=== PATIENT | male | born 1970 | race Hispanic/Latino ===

== ENCOUNTER 2019-06-25 07:47 | Inpatient (IN) | payer MEDICARE ==
[2019-06-25] MEDS ORDERED: SODIUM CHLORIDE 0.9% 1000 ML 1,000 ML IV ONE (08:16)
--- NOTE | 2019-06-25 08:27 | Emergency Department Report ---
ED General Adult HPI - General Chief complaint: Weakness Stated complaint: WEAKNESS Time Seen by Provider: 06/25/19 08:17 Source: patient, EMS Mode of arrival: Wheelchair Limitations: No Limitations, Physical Limitation - History of Present Illness Initial comments: 49 yo comes to ER with co weakness. He admits to crack this AM. Denies cp or SOB. Pt lived in personal senior living that closed. They gave him temp housing in hotel- which he will get kicked of today at 1100. Pt states he has DM and HTN. Also BKA left. Also has hypothyroidism Pt states he is on many meds but can not tell me what they are- they are in hotel room which he states he can not access. Denies CVA/heart attack PCP Dr Palencia Denies cig/etoh NOK is dad who lives in [place] -: Sudden, hour(s) Improves with: none Worsens with: none Associated Symptoms: malaise, weakness. denies: denies other symptoms, confusion, chest pain, cough, diaphoresis, fever/chills, headaches, loss of appetite, nausea/vomiting, rash, seizure, shortness of breath, syncope Treatments Prior to Arrival: none - Related Data Home Medications Medication Instructions Recorded Confirmed Last Taken Unobtainable 06/25/19 06/25/19 Unknown Allergies Allergy/AdvReac Type Severity Reaction Status Date / Time BOWEN Inhibitors Allergy Unknown Verified 06/25/19 08:06 ED Review of Systems ROS: Stated complaint: WEAKNESS Other details as noted in HPI Comment: All other systems reviewed and negative ED Past Medical Hx - Past Medical History Previous Medical History?: Yes Hx Hypertension: Yes Hx CVA: No Hx Heart Attack/AMI: No Hx Congestive Heart Failure: No Hx Diabetes: Yes Hx Deep Vein Thrombosis: No Hx Pulmonary Embolism: No Hx GERD: No Hx Liver Disease: No Hx Renal Disease: No Hx of Cancer: No Hx Sickle Cell Disease: No Hx Arthritis: No Hx Headaches / Migraines: No Hx Seizures: No Hx Kidney Stones: No Hx Psychiatric Treatment: Yes (schizo affective) Hx Asthma: No Hx COPD: No Hx Tuberculosis: No Hx Dementia: No Hx HIV: No Additional medical history: hypothyroid - Surgical History Past Surgical History?: Yes Additional Surgical History: Right AKA- carpel tunnel and finger release - Family History Family history: no significant - Social History Smoking Status: Current Some Day Smoker Substance Use Type: Alcohol, Cocaine - Medications Home Medications: Home Medications Medication Instructions Recorded Confirmed Last Taken Type Unobtainable 06/25/19 06/25/19 Unknown History ED Physical Exam - General Limitations: No Limitations, Physical Limitation General appearance: alert, in no apparent distress - Head Head exam: Present: atraumatic, normocephalic - Eye Eye exam: Present: normal appearance - ENT ENT exam: Present: mucous membranes moist - Neck Neck exam: Present: normal inspection - Respiratory Respiratory exam: Present: normal lung sounds bilaterally. Absent: respiratory distress - Cardiovascular Cardiovascular Exam: Present: regular rate, normal rhythm. Absent: systolic murmur, diastolic murmur, rubs, gallop - GI/Abdominal GI/Abdominal exam: Present: soft, normal bowel sounds - Rectal Rectal exam: Present: deferred - Extremities Exam Extremities exam: Present: other (r bka) - Back Exam Back exam: Present: normal inspection - Neurological Exam Neurological exam: Present: alert, oriented X3 - Psychiatric Psychiatric exam: Present: normal affect, normal mood - Skin Skin exam: Present: warm, dry, intact, normal color. Absent: rash ED Course Vital Signs 06/25/19 08:10 Temperature 98.4 F Pulse Rate 95 H Respiratory 16 Rate Blood Pressure 173/85 O2 Sat by Pulse 96 Oximetry ED Medical Decision Making - Lab Data Result diagrams: 06/25/19 08:29 06/25/19 08:29 - EKG Data EKG shows normal: sinus rhythm Rate: normal - EKG Data Interpretation: no acute changes - Radiology Data Radiology results: report reviewed, image reviewed - Medical Decision Making Labs 06/25/19 06/25/19 06/25/19 08:29 08:29 08:29 WBC 7.1 RBC 4.80 Hgb 13.4 Hct 38.8 MCV 81 L MCH 28 MCHC 35 H RDW 15.6 H Plt Count 130 L Lymph % (Auto) 30.4 [place] % (Auto) 5.5 Eos % (Auto) 3.1 Baso % (Auto) 1.2 Lymph # 2.2 [place] # 0.4 Eos # 0.2 Baso # 0.1 Seg Neutrophils % 59.8 Seg Neutrophils # 4.2 VBG pH 7.297 L Sodium 135 L Potassium 3.7 Chloride 93.7 L Carbon Dioxide 18 L Anion Gap 27 BUN 21 H Creatinine 1.3 Estimated GFR 58 BUN/Creatinine Ratio 16 Glucose 391 H Calcium 9.2 Total Bilirubin 0.30 AST 16 ALT 17 Alkaline Phosphatase 200 H Troponin T 0.038 H Total Protein 6.3 Albumin 2.9 L Albumin/Globulin Ratio 0.9 Triglycerides 392 H Cholesterol 191 LDL Cholesterol Direct 123 HDL Cholesterol 29 L Cholesterol/HDL Ratio 6.58 Urine Color Urine Turbidity Urine pH Ur Specific [place] Urine Protein Urine Glucose (UA) Urine Ketones Urine Blood Urine Nitrite Urine Bilirubin Urine Urobilinogen Ur Leukocyte Esterase Urine WBC (Auto) Urine RBC (Auto) Urine Bacteria (Auto) Urine Mucus Urine Opiates Screen Urine Methadone Screen Ur Barbiturates Screen Ur Phencyclidine Scrn Ur Amphetamines Screen U Benzodiazepines Scrn Urine Cocaine Screen U Marijuana (THC) Screen Drugs of Abuse Note 06/25/19 06/25/19 Unknown Unknown WBC RBC Hgb Hct MCV MCH MCHC RDW Plt Count Lymph % (Auto) [place] % (Auto) Eos % (Auto) Baso % (Auto) Lymph # [place] # Eos # Baso # Seg Neutrophils % Seg Neutrophils # VBG pH Sodium Potassium Chloride Carbon Dioxide Anion Gap BUN Creatinine Estimated GFR BUN/Creatinine Ratio Glucose Calcium Total Bilirubin AST ALT Alkaline Phosphatase Troponin T Total Protein Albumin Albumin/Globulin Ratio Triglycerides Cholesterol LDL Cholesterol Direct HDL Cholesterol Cholesterol/HDL Ratio Urine Color Yellow Urine Turbidity Clear Urine pH 5.0 Ur Specific [place] 1.021 Urine Protein >500 Urine Glucose (UA) >=500 Urine Ketones 80 Urine Blood Mod Urine Nitrite Neg Urine Bilirubin Neg Urine Urobilinogen < 2.0 Ur Leukocyte Esterase Neg Urine WBC (Auto) 2.0 Urine RBC (Auto) 2.0 Urine Bacteria (Auto) 1+ Urine Mucus Few Urine Opiates Screen Presumptive negative Urine Methadone Screen Presumptive negative Ur Barbiturates Screen Presumptive negative Ur Phencyclidine Scrn Presumptive negative Ur Amphetamines Screen Presumptive negative U Benzodiazepines Scrn Presumptive negative Urine Cocaine Screen Presumptive positive U Marijuana (THC) Screen Presumptive negative Drugs of Abuse Note Disclamer Vital Signs 06/25/19 08:10 Temperature 98.4 F Pulse Rate 95 H Respiratory 16 Rate Blood Pressure 173/85 O2 Sat by Pulse [address] Fam labs noted UA noted 12 lead noted NS/insulin NPO BG Q1h Discussed with cards- will admit to [facility] and they will stress in AM [facility] notified of pt presentation- admit to main campus medical center Pt updated on plan of care and admission. - Differential Diagnosis ro dka/infection/acs Critical care attestation.: If time is entered above; I have spent that time in minutes in the direct care of this critically ill patient, excluding procedure time. ED Disposition Clinical Impression: Weakness, Elevated troponin Disposition: DC09 OP ADMIT IP TO THIS HOSP Is pt being admited?: Yes Does the pt Need Aspirin: No Condition: Stable Time of Disposition: 10:42
[2019-06-25 08:55] LABS: Basophils # (Auto) 0.1 K/mm3 (0.0-0.1); Basophils % (Auto) 1.2 % (0.0-1.8); Eosinophils # (Auto) 0.2 K/mm3 (0.0-0.4); Eosinophils % (Auto) 3.1 % (0.0-4.3); Hematocrit 38.8 % (35.5-45.6); Hemoglobin 13.4 gm/dl (11.8-15.2); Lymphocytes # (Auto) 2.2 K/mm3 (1.2-5.4); Lymphocytes % (Auto) 30.4 % (13.4-35.0); Mean Corpuscular HGB Conc 35 % (32-34); Mean Corpuscular Volume 81 fl (84-94); Monocytes # (Auto) 0.4 K/mm3 (0.0-0.8); Monocytes % (Auto) 5.5 % (0.0-7.3); Platelet Count 130 K/mm3 (140-440); Red Cell Distribution Width 15.6 % (13.2-15.2)
[2019-06-25 09:21] LABS: Albumin 2.9 g/dL (3.9-5); Calcium 9.2 mg/dL (8.4-10.2)
[2019-06-25 09:36] LABS: Bacteria,Urine 1+ /HPF (Negative); Bilirubin,Urine NEG (Negative); Blood,Urine MOD (Negative); Color,Urine Yellow (Yellow); Mucus,Urine FEW /HPF; Urobilinogen,Urine < 2.0 mg/dL (<2.0)
[2019-06-25 09:39] LABS: Protein,Urine >500 mg/dL (Negative)
[2019-06-25 09:44] LABS: Amphetamine Screen,Urine PRESUMPTIVE NEGATIVE; Benzodiazepines Screen,Urine PRESUMPTIVE NEGATIVE; Cannabinoid Screen,Urine PRESUMPTIVE NEGATIVE; Methadone Screen,Urine PRESUMPTIVE NEGATIVE; Opiate Screen,Urine PRESUMPTIVE NEGATIVE
[2019-06-25 09:48] LABS: Chol/HDL Ratio 6.58 %
[2019-06-25] MEDS ORDERED: INSULIN REGULAR, HUMAN 100 UNITS/1 ML IV ONE (09:49)
[2019-06-25] MEDS ORDERED: ASPIRIN 325 MG TAB PO ONE (09:49)
[2019-06-25 10:02] LABS: Cocaine Screen,Urine PRESUMPTIVE POSITIVE
--- NOTE | 2019-06-25 10:57 | Consultation ---
History of Present Illness Consult date: 06/25/19 Requesting physician: MALDONADO AVILA Consult reason: chest pain, elevated troponin History of present illness: The pt is a 49 YO male with a past medical history of HTN, DM, crack cocaine abuse, RLE gangrene s/p right BKA several years ago. Pt is previously unknown to our practice. He does not regularly see doctors. He presented with c/o generalized weakness and chest pain since this morning. He was recently "kicked out" of his personal pen[facility] because the home shut down. He was placed in a hotel room. For the past 1 week, he has been smoking crack cocaine in the hotel several times per day. This morning, he developed chest pain and generalized weakness. He describes his chest pain as a midsternal pressure which lasted for approx 2 hours. The pain spontaneously resolved. He denies any SOB, palpi tations, n/v, diaphoresis, dizziness or syncope. He denies any known prior cardiac issues. Past History Past Medical History: diabetes, hypertension Past Surgical History: Other (right BKA) Social history: other (crack cocaine use) Medications and Allergies Allergies Allergy/AdvReac Type Severity Reaction Status Date / Time BOWEN Inhibitors Allergy Unknown Verified 06/25/19 08:06 Home Medications Medication Instructions Recorded Confirmed Last Taken Type Unobtainable 06/25/19 06/25/19 Unknown History Review of Systems Constitutional: weakness (generalized), no weight loss, no weight gain, no fever, no chills, no sweats Ears, nose, mouth and throat: no ear pain, no nose pain, no sinus pressure, no sinus pain Cardiovascular: chest pain, no orthopnea, no palpitations, no rapid/irregular heart beat, no edema, no syncope, no lightheadedness, no shortness of breath, no dyspnea on exertion Respiratory: no cough, no shortness of breath, no dyspnea on exertion, no congestion, no wheezing, no pain on inspiration Gastrointestinal: no abdominal pain, no nausea, no vomiting, no diarrhea, no constipation, no change in bowel habits Genitourinary Male: no dysuria, no hematuria, no flank pain, no discharge, no urinary frequency, no urinary hesitancy Musculoskeletal: no neck stiffness, no neck pain, no shooting arm pain, no arm numbness/tingling, no low back pain, no shooting leg pain Integumentary: no rash, no pruritis, no redness, no sores, no wounds Neurological: no head injury, no paralysis, no weakness, no parathesias, no numbness, no tingling, no seizures Psychiatric: no anxiety Endocrine: no cold intolerance, no heat intolerance Hematologic/Lymphatic: no easy bruising, no easy bleeding Allergic/Immunologic: no urticaria, no wheezing Physical Examination Vital Signs Temp Pulse Resp BP Pulse Ox 98.4 F 95 H 16 173/85 96 06/25/19 08:10 06/25/19 08:10 06/25/19 08:10 06/25/19 08:10 06/25/19 08:10 General appearance: no acute distress HEENT: Positive: PERRL, Normocephaly, Mucus Membranes Moist Neck: Positive: neck supple, trachea midline Cardiac: Positive: Reg Rate and Rhythm, S1/S2 Lungs: Positive: Decreased Breath Sounds Neuro: Positive: Grossly Intact Abdomen: Negative: Tender Skin: Negative: Rash, Wound Musculoskeletal: No Pain, other (right BKA ) Extremities: Present: Other (right BKA) Results 06/25/19 08:29 06/25/19 08:29 Cardiac Enzymes 06/25/19 Range/Units 08:29 AST 16 (5-40) units/L Lipids 06/25/19 Range/Units 08:29 Triglycerides 392 H (2-149) mg/dL Cholesterol 191 (50-199) mg/dL HDL Cholesterol 29 L (40-59) mg/dL Cholesterol/HDL Ratio 6.58 % CBC 06/25/19 Range/Units 08:29 WBC 7.1 (4.5-11.0) K/mm3 RBC 4.80 (3.65-5.03) M/mm3 Hgb 13.4 (11.8-15.2) gm/dl Hct 38.8 (35.5-45.6) % Plt Count 130 L (140-440) K/mm3 Lymph # 2.2 (1.2-5.4) K/mm3 [place] # 0.4 (0.0-0.8) K/mm3 Eos # 0.2 (0.0-0.4) K/mm3 Baso # 0.1 (0.0-0.1) K/mm3 Comprehensive Metabolic Panel 06/25/19 Range/Units 08:29 Sodium 135 L (137-145) mmol/L Potassium 3.7 (3.6-5.0) mmol/L Chloride 93.7 L (98-107) mmol/L Carbon Dioxide 18 L (22-30) mmol/L BUN 21 H (9-20) mg/dL Creatinine 1.3 (0.8-1.5) mg/dL Glucose 391 H (75-100) mg/dL Calcium 9.2 (8.4-10.2) mg/dL AST 16 (5-40) units/L ALT 17 (7-56) units/L Alkaline Phosphatase 200 H (35-129) units/L Total Protein 6.3 (6.3-8.2) g/dL Albumin 2.9 L (3.9-5) g/dL - Imaging and Cardiology Echo: pending EKG: report reviewed, image reviewed EKG interpretations - Telemetry EKG Rhythm: Sinus Rhythm - EKG Sinus rhythms and dysrhythmias: sinus rhythm Assessment and Plan Troponin elevation appears nonspecific at this time. Cont to trend and repeat ECG in AM. If Fany trend upwards, then can consider initiation of heparin gtt. Initiate ASA and statin. Optimize anti-hypertensive regimen. Obtain echo. Plan for lexiscan MPI stress test in AM. NPO after MN. The patient has been seen in conjunction with Dr. Palencia who agrees with the assessment and plan of care. - Patient Problems (1) Chest pain Current Visit: Yes Status: Acute (2) Elevated troponin Current Visit: Yes Status: Acute (3) Weakness Current Visit: Yes Status: Acute (4) Uncontrolled hypertension Current Visit: Yes Status: Chronic (5) Diabetes Current Visit: Yes Status: Chronic (6) Crack cocaine use Current Visit: Yes Status: Chronic (7) Hx of right BKA Current Visit: Yes Status: Chronic
[2019-06-25] MEDS ORDERED: MORPHINE 2 MG/1 ML INJ IV PRN (11:02)
[2019-06-25] MEDS ORDERED: NALOXONE 0.4 MG/1 ML INJ IV PRN (11:02)
[2019-06-25] MEDS ORDERED: DEXTROSE 50% IN WATER (25GM) 50 ML SYRINGE IV PRN (11:02)
[2019-06-25] MEDS ORDERED: ONDANSETRON 4 MG/2 ML INJ IV PRN (11:02)
[2019-06-25] MEDS ORDERED: ACETAMINOPHEN 325 MG TAB PO PRN (11:02)
--- NOTE | 2019-06-25 11:08 | History and Physical Report ---
History of Present Illness Date of examination: 06/25/19 Date of admission: 06/25/19 10:31 Chief complaint: generalized weakness History of present illness: Patient is a 49 year old male with past medical hx of DM, HTN, Right lower ext gangrene s/p BKA as a complication of DM, crack cocain abuse, Who presents to the ED with complaints of generalized weakness AND Chest pain. Per patient he was a resident of a personal detention that subsequently shut down and he was placed in a hotel room. The patient reports that unfortunately due to the pervasiveness of cocain in the area and his feeling of depression although not suicidal, he started to use Cocain. The chest pain is central according to the patient with no radiation. He rates it a 5/10 in intensity with generalized weakness. He also denies any shortness of breath, palpitation, nausea or vomiting. He reports some redness and warmth of the left lower leg but no fever. At the time of my exam, patients chest pain was resolved. Past History Past Medical History: diabetes, hypertension Past Surgical History: Other (right BKA) Social history: other (crack cocaine use Past History Past Medical History: diabetes, hypertension Past Surgical History: Other (right BKA) Social history: other (crack cocaine use) Medications and Allergies Allergies Allergy/AdvReac Type Severity Reaction Status Date / Time BOWEN Inhibitors Allergy Unknown Verified 06/25/19 08:06 Home Medications Medication Instructions Recorded Confirmed Last Taken Type Unobtainable 06/25/19 06/25/19 Unknown History Active Meds: Active Medications Acetaminophen (Tylenol) 650 mg PO Q4H PRN PRN Reason: Pain MILD(1-3)/Fever >100.5/KNOTT Aspirin (Aspirin) 325 mg PO QDAY ADITHYA Atorvastatin Calcium (Lipitor) 40 mg PO QHS [facility] Dextrose (D50w (25gm) Syringe) 50 ml IV Q30MIN PRN; Protocol PRN Reason: Hypoglycemia Heparin Sodium/Sodium Chloride (Heparin/ 0.45% Nacl-25,000 Unit/500 Ml) 25,000 unit in 500 mls @ 20 mls/hr IV TITRATE ADITHYA; Protocol Insulin Human Lispro (Humalog) 0 unit SUB-Q Q6HR ADITHYA; Protocol Morphine Sulfate (Morphine) 2 mg IV Q4H PRN PRN Reason: Pain, Moderate (4-6) Naloxone HCl (Naloxone) 0.1 mg IV Q2MIN PRN PRN Reason: Res Rate </= 8 or 02 SAT < 92% Ondansetron HCl (Zofran) 4 mg IV Q8H PRN PRN Reason: Nausea And Vomiting Sodium Chloride (Sodium Chloride Flush Syringe 10 Ml) 10 ml IV BID ADITHYA Sodium Chloride (Sodium Chloride Flush Syringe 10 Ml) 10 ml IV PRN PRN PRN Reason: LINE FLUSH Review of Systems All systems: negative Constitutional: fatigue, weakness, malaise, lethargy, no weight loss, no weight gain, no fever, no chills Cardiovascular: edema, no chest pain, no orthopnea, no palpitations, no rapid/irregular heart beat, no lightheadedness, no shortness of breath, no dyspnea on exertion Respiratory: shortness of breath, no cough, no cough with sputum, no excessive sputum, no dyspnea on exertion, no pain Gastrointestinal: no abdominal pain, no nausea, no vomiting, no hematochezia, no loss of appetite Musculoskeletal: no neck pain, no low back pain, no muscle weakness Integumentary: no rash, no wounds, no lesions Neurological: weakness, gait dysfunction, no parathesias, no numbness, no seizures Psychiatric: no anxiety, no memory loss, no sleep disturbances Allergic/Immunologic: no urticaria Exam - Constitutional Vitals: Temp Pulse Resp BP Pulse Ox 98.4 F 95 H 16 173/85 96 06/25/19 08:10 06/25/19 08:10 06/25/19 08:10 06/25/19 08:10 06/25/19 08:10 General appearance: Present: mild distress, well-nourished - EENT Eyes: Present: PERRL, EOM intact ENT: clear oral mucosa - Neck Neck: Present: supple, normal ROM - Respiratory Respiratory effort: normal Respiratory: bilateral: diminished - Cardiovascular Rhythm: regular Heart Sounds: Present: S1 & S2. Absent: systolic murmur, diastolic murmur - Extremities Extremities: no ischemia, pulses intact, pulses symmetrical, normal temperature Extremity abnormal: edema Peripheral Pulses: within normal limits - Abdominal General gastrointestinal: Present: soft, non-tender, non-distended, normal bowel sounds - Integumentary Integumentary: Present: warm, erythema (left lower ext) - Musculoskeletal Musculoskeletal: generalized weakness - Psychiatric Psychiatric: appropriate mood/affect, intact judgment & insight - Neurologic Neurologic: CNII-XII intact, moves all extremities - Allied Health Allied health notes reviewed: nursing Results - Labs CBC & Chem 7: 06/25/19 18:55 06/25/19 08:29 Labs: Laboratory Last Values WBC 7.1 K/mm3 (4.5-11.0) 06/25/19 08:29 RBC 4.80 M/mm3 (3.65-5.03) 06/25/19 08:29 Hgb 13.4 gm/dl (11.8-15.2) 06/25/19 08:29 Hct 38.8 % (35.5-45.6) 06/25/19 08: MCV 81 fl (84-94) L 06/25/19 08:29 MCH 28 pg (28-32) 06/25/19 08:29 MCHC 35 % (32-34) H 06/25/19 08: RDW 15.6 % (13.2-15.2) H 06/25/19 08:29 Plt Count 130 K/mm3 (140-440) L 06/25/19 08:29 Lymph % (Auto) 30.4 % (13.4-35.0) 06/25/19 08:29 [place] % (Auto) 5.5 % (0.0-7.3) 06/25/19 08:29 Eos % (Auto) 3.1 % (0.0-4.3) 06/25/19 08:29 Baso % (Auto) 1.2 % (0.0-1.8) 06/25/19 08:29 Lymph # 2.2 K/mm3 (1.2-5.4) 06/25/19 08:29 [place] # 0.4 K/mm3 (0.0-0.8) 06/25/19 08:29 Eos # 0.2 K/mm3 (0.0-0.4) 06/25/19 08: Baso # 0.1 K/mm3 (0.0-0.1) 06/25/19 08:29 Seg Neutrophils % 59.8 % (40.0-70.0) 06/25/19 08: Seg Neutrophils # 4.2 K/mm3 (1.8-7.7) 06/25/19 08:29 VBG pH 7.297 (7.320-7.420) L 06/25/19 08:29 Sodium 135 mmol/L (137-145) L 06/25/19 08:29 Potassium 3.7 mmol/L (3.6-5.0) 06/25/19 08:29 Chloride 93.7 mmol/L (98-107) L 06/25/19 08:29 Carbon Dioxide 18 mmol/L (22-30) L 06/25/19 08:29 Anion Gap 27 mmol/L 06/25/19 08:29 BUN 21 mg/dL (9-20) H 06/25/19 08:29 Creatinine 1.3 mg/dL (0.8-1.5) 06/25/19 08:29 Estimated GFR 58 ml/min 06/25/19 08:29 BUN/Creatinine Ratio 16 % 06/25/19 08:29 Glucose 391 mg/dL (75-100) H 06/25/19 08:29 Calcium 9.2 mg/dL (8.4-10.2) 06/25/19 08:29 Total Bilirubin 0.30 mg/dL (0.1-1.2) 06/25/19 08:29 AST 16 units/L (5-40) 06/25/19 08:29 ALT 17 units/L (7-56) 06/25/19 08:29 Alkaline Phosphatase 200 units/L (35-129) H 06/25/19 08:29 Troponin T 0.038 ng/mL (0.00-0.029) H 06/25/19 08:29 Total Protein 6.3 g/dL (6.3-8.2) 06/25/19 08:29 Albumin 2.9 g/dL (3.9-5) L 06/25/19 08:29 Albumin/Globulin Ratio 0.9 % 06/25/19 08:29 Triglycerides 392 mg/dL (2-149) H 06/25/19 08:29 Cholesterol 191 mg/dL (50-199) 06/25/19 08:29 LDL Cholesterol Direct 123 mg/dL (50-130) 06/25/19 08:29 HDL Cholesterol 29 mg/dL (40-59) L 06/25/19 08:29 Cholesterol/HDL Ratio 6.58 % 06/25/19 08:29 Urine Color Yellow (Yellow) 06/25/19 Unknown Urine Turbidity Clear (Clear) 06/25/19 Unknown Urine pH 5.0 (5.0-7.0) 06/25/19 Unknown Ur Specific [place] 1.021 (1.003-1.030) 06/25/19 Unknown Urine Protein >500 mg/dL (Negative) 06/25/19 Unknown Urine Glucose (UA) >=500 mg/dL (Negative) 06/25/19 Unknown Urine Ketones 80 mg/dL (Negative) 06/25/19 Unknown Urine Blood Mod (Negative) 06/25/19 Unknown Urine Nitrite Neg (Negative) 06/25/19 Unknown Urine Bilirubin Neg (Negative) 06/25/19 Unknown Urine Urobilinogen < 2.0 mg/dL (<2.0) 06/25/19 Unknown Ur Leukocyte Esterase Neg (Negative) 06/25/19 Unknown Urine WBC (Auto) 2.0 /HPF (0.0-6.0) 06/25/19 Unknown Urine RBC (Auto) 2.0 /HPF (0.0-6.0) 06/25/19 Unknown Urine Bacteria (Auto) 1+ /HPF (Negative) 06/25/19 Unknown Urine Mucus Few /HPF 06/25/19 Unknown Urine Opiates Screen Presumptive negative 06/25/19 Unknown Urine Methadone Screen Presumptive negative 06/25/19 Unknown Ur Barbiturates Screen Presumptive negative 06/25/19 Unknown Ur Phencyclidine Scrn Presumptive negative 06/25/19 Unknown Ur Amphetamines Screen Presumptive negative 06/25/19 Unknown U Benzodiazepines Scrn Presumptive negative 06/25/19 Unknown Urine Cocaine Screen Presumptive positive 06/25/19 Unknown U Marijuana (THC) Screen Presumptive negative 06/25/19 Unknown Drugs of Abuse Note Disclamer 06/25/19 Unknown Assessment and Plan Assessment and plan: Patient is a 49 year old male with past medical hx of DM, HTN, Right lower ext gangrene s/p BKA as a complication of DM, crack cocain abuse, Who presents to the ED with complaints of generalized weakness AND Chest pain. Per patient he was a resident of a personal detention that subsequently shut down and he was placed in a hotel room. The patient reports that unfortunately due to the pervasiveness of cocain in the area and his feeling of depression although not suicidal, he started to use Cocain. The chest pain is central according to the patient with no radiation. He rates it a 5/10 in intensity with generalized weakness. He also denies any shortness of breath, palpitation, nausea or vomiting. He reports some redness and warmth of the left lower leg but no fever. At the time of my exam, patients chest pain was resolved. Atypical chest pain Depression Metabolic Acidosis Hyponatremia Left lower ext cellulitis Thrombocytopenia Trace Troponin Uncontrolled DM Substance abuse No Sepsis SIRS HTN DM Plan Admit to Telemetry Cardiology already consulted plan for stress over the weekend. Per team no need for heparin gtt at this time BP control EMPERIC ABX CM CONSULT FOR PLACEMENT ON DISCHARGE ACCU CHECK ACHS INSULIN THERAPY Give a dose of bicarb ECho cardiogram Monitor sodium level extensive counselling on crack cocain use and her verbalized understanding dvt/gi prophy fall precautions Advance Directives: Yes Plan of care discussed with patient/family: Yes
[2019-06-25] MEDS ORDERED: SODIUM CHLORIDE 0.9% 1000 ML 1,000 ML ONE (11:22)
[2019-06-25] MEDS ORDERED: INSULIN REGULAR, HUMAN 100 UNITS/1 ML ONE (11:23)
[2019-06-25] MEDS ORDERED: ASPIRIN 325 MG TAB ONE (11:24)
[2019-06-25] MEDS ORDERED: HEPARIN/ 0.45% NACL DRIP 25,000 UNIT/500 ML BAG IV SCH (12:00)
[2019-06-25] MEDS ORDERED: INSULIN LISPRO 100 UNIT/ML SUB-Q SCH (12:00)
--- NOTE | 2019-06-25 12:05 | XRay Report ---
CHEST 1 VIEW INDICATION: weakness. COMPARISON: None FINDINGS: Support devices: None. Heart: Within normal limits. Lungs/Pleura: No acute air space or interstitial disease. Additional findings: None. IMPRESSION: Normal AP chest. Signer Name: Enzo Reynolds Jr, MD Signed: 06/25/2019 12:00 PM Workstation Name: [id number]
[2019-06-25] MEDS: CEFEPIME/NS 1 GM/100 ML 1 GM/100 ML BAG IV SCH ×2 (17:48→22:58)
[2019-06-25] MEDS: INSULIN LISPRO 100 UNIT/ML SUB-Q SCH ×2 (17:49→22:58)
[2019-06-25 19:21] LABS: Hematocrit 36.8 % (35.5-45.6); Hemoglobin 12.3 gm/dl (11.8-15.2)
[2019-06-25 19:30] LABS: INR 1.07 (0.87-1.13)
[2019-06-25 19:31] LABS: Partial Thromboplastin Time 35.3 Sec. (24.2-36.6)
[2019-06-25] MEDS: INSULIN GLARGINE 100 UNITS/ML SUB-Q SCH (22:57)
[2019-06-26] MEDS: CEFEPIME/NS 1 GM/100 ML 1 GM/100 ML BAG IV SCH ×2 (06:23→14:18)
[2019-06-26] MEDS ORDERED: REGADENOSON 0.4 MG/5 ML INJ IV ONE (07:57)
[2019-06-26] MEDS: INSULIN LISPRO 100 UNIT/ML SUB-Q SCH ×4 (08:00→21:51)
--- NOTE | 2019-06-26 08:56 | Progress Note ---
Assessment and Plan Treatment medically for patient's abnormal trop secondary to crack cocaine use patient was counseled. Drug abuse patient has normal myocardial perfusion scan on stress test and normal function echocardiogram patient will be on aspirin and statin and BP control discharge from cardiovascular - Patient Problems (1) NSTEMI (non-ST elevated myocardial infarction) Current Visit: Yes Status: Acute (2) Weakness Current Visit: Yes Status: Acute (3) Crack cocaine use Current Visit: Yes Status: Chronic (4) Diabetes Current Visit: Yes Status: Chronic (5) Hx of right BKA Current Visit: Yes Status: Chronic (6) Uncontrolled hypertension Current Visit: Yes Status: Chronic Subjective Date of service: 06/26/19 Principal diagnosis: weakness Interval history: pt denies any chest pain or sob , but weakness Objective Vital Signs Temp Pulse Resp BP Pulse Ox 06/26/19 03:55 98.6 F 79 16 149/73 100 06/26/19 03:47 92 H 06/26/19 00:45 98.2 F 96 H 18 154/56 91 06/25/19 22:57 90 155/75 06/25/19 21:55 97 06/25/19 21:05 98.8 F 97 H 20 155/75 97 06/25/19 19:47 96 H 06/25/19 15:52 98.3 F 95 H 18 119/48 95 06/25/19 13:02 97.7 F 79 18 158/79 98 06/25/19 11:32 93 H 148/76 - Physical Examination HEENT: Positive: PERRL, Normocephaly, Mucus Membranes Moist Neck: Positive: neck supple, trachea midline Cardiac: Positive: Reg Rate and Rhythm Lungs: Positive: clear to auscultation Neuro: Positive: Grossly Intact Abdomen: Negative: Tender Skin: Negative: Rash, Wound Musculoskeletal: No Pain, other (right BKA ) Extremities: Present: Other (right BKA) - Labs and Meds Cardiac Enzymes 06/25/19 Range/Units 08:29 AST 16 (5-40) units/L Coagulation 06/25/19 Range/Units 18:55 PT 13.8 (12.2-14.9) Sec. INR 1.07 (0.87-1.13) APTT 35.3 (24.2-36.6) Sec. Lipids 06/25/19 Range/Units 08:29 Triglycerides 392 H (2-149) mg/dL Cholesterol 191 (50-199) mg/dL HDL Cholesterol 29 L (40-59) mg/dL Cholesterol/HDL Ratio 6.58 % CBC 06/25/19 06/25/19 Range/Units 08:29 18:55 WBC 7.1 (4.5-11.0) K/mm3 RBC 4.80 (3.65-5.03) M/mm3 Hgb 13.4 12.3 (11.8-15.2) gm/dl Hct 38.8 36.8 (35.5-45.6) % Plt Count 130 L 111 L (140-440) K/mm3 Lymph # 2.2 (1.2-5.4) K/mm3 [place] # 0.4 (0.0-0.8) K/mm3 Eos # 0.2 (0.0-0.4) K/mm3 Baso # 0.1 (0.0-0.1) K/mm3 Comprehensive Metabolic Panel 06/25/19 Range/Units 08:29 Sodium 135 L (137-145) mmol/L Potassium 3.7 (3.6-5.0) mmol/L Chloride 93.7 L (98-107) mmol/L Carbon Dioxide 18 L (22-30) mmol/L BUN 21 H (9-20) mg/dL Creatinine 1.3 (0.8-1.5) mg/dL Glucose 391 H (75-100) mg/dL Calcium 9.2 (8.4-10.2) mg/dL AST 16 (5-40) units/L ALT 17 (7-56) units/L Alkaline Phosphatase 200 H (35-129) units/L Total Protein 6.3 (6.3-8.2) g/dL Albumin 2.9 L (3.9-5) g/dL - Imaging and Cardiology EKG: report reviewed, image reviewed Pharmacologic stress test: report reviewed (normal myocardial perfusion scan normal lv function) Echo: report reviewed (normal LV function and no significant regurgitations) - Telemetry EKG Rhythm: Sinus Rhythm - EKG Sinus rhythms and dysrhythmias: sinus rhythm
--- NOTE | 2019-06-26 09:47 | Treadmill Report ---
NUCLEAR PERFUSION STUDY REASON FOR STUDY: Abnormal troponin. IMAGING PROTOCOL: IMAGING PROTOCOL: The patient received 10 mCi of Technetium 99m Tetrofosmin for resting image and 28 mCi of Technetium 99m Tetrofosmin for stress imaging. The imaging for the whole procedure was completed 30-90 minutes following the initial injection of Technetium 99m Tetrofosmin. The SPECT imaging in the 180 degree arc was performed in the right anterior oblique projection. Computerized reconstruction of the images was performed for analysis. IMAGING RESULTS: Normal distribution of radionuclide in the anterior, inferior, septal, and apical regions. Gated SPECT, EF 64% with no wall motion abnormality. The patient infused Lexiscan with no EKG changes. SUMMARY: 1. Negative Lexiscan EKG. 2. Normal rest and stress myocardial perfusion scan. No significant stress ischemia. No wall motion abnormality. Gated SPECT, EF 64%. JOB# [id number] ADINA/LYNETTE
[2019-06-26] MEDS: ASPIRIN 325 MG TAB PO SCH (10:35)
[2019-06-26 11:03] LABS: Basophils # (Auto) 0.1 K/mm3 (0.0-0.1); Basophils % (Auto) 0.9 % (0.0-1.8); Eosinophils # (Auto) 0.2 K/mm3 (0.0-0.4); Eosinophils % (Auto) 2.6 % (0.0-4.3); Hematocrit 37.6 % (35.5-45.6); Hemoglobin 12.4 gm/dl (11.8-15.2); Lymphocytes # (Auto) 1.3 K/mm3 (1.2-5.4); Lymphocytes % (Auto) 21.4 % (13.4-35.0); Mean Corpuscular HGB Conc 33 % (32-34); Mean Corpuscular Volume 84 fl (84-94); Monocytes # (Auto) 0.3 K/mm3 (0.0-0.8); Monocytes % (Auto) 5.5 % (0.0-7.3); Platelet Count 114 K/mm3 (140-440); Red Cell Distribution Width 15.6 % (13.2-15.2)
[2019-06-26 11:19] LABS: Calcium 8.5 mg/dL (8.4-10.2)
--- NOTE | 2019-06-26 12:52 | Discharge Summary ---
Providers - Providers Date of Admission: 06/25/19 10:31 Date of discharge: 06/26/19 Attending physician: EMILY STALEY 06/25/19 10:50 Consult to Physician [CONS] Stat Comment: Consulting Provider: MIGDALIA RAMIREZ Physician Instructions: Reason For Exam: elevated troponin 06/25/19 12:29 Consult to Mental Health [CONS] Routine Reason For Exam: medication assistance Place consult to:: mental health Notified:: Alexia KIRKLAND Phone number called:: [phone]. [phone] Was contact made?: Yes If yes, spoke with:: [facility] Time called:: 13:52 06/25/19 12:38 Consult to Case Management [CONS] Routine Services Needed at Discharge: Server Support Technician Notified:: case management Additional Physician Instructions: homeless Primary care physician: FAMILY THERAPIST Hospitalization Condition: Good Pertinent studies: echo cardiogram normal and stress test normal Hospital course: presents atypical chest pain secondary to crack cocaine abuse. Patient had negative stress tests negative echo. Cardiac isoenzymes are elevated secondary to crack cocaine abuse. Hypertension fairly well control was optimize d. Patient stabilized for discharge. Also had evidence of hyponatremia diabetes are stable and hypertension. Disposition: DC-01 TO HOME OR SELFCARE Core Measure Documentation - Palliative Care Palliative Care/ Comfort Measures: Not Applicable - Core Measures Any of the following diagnoses?: none Exam - Constitutional Vitals: Temp Pulse Resp BP Pulse Ox 98.6 F 79 16 129/64 100 06/26/19 03:55 06/26/19 03:55 06/26/19 03:55 06/26/19 08:46 06/26/19 03:55 General appearance: Present: no acute distress, well-nourished - EENT Eyes: Present: PERRL ENT: hearing intact, clear oral mucosa - Neck Neck: Present: supple, normal ROM - Respiratory Respiratory effort: normal Respiratory: bilateral: CTA - Cardiovascular Heart Sounds: Present: S1 & S2. Absent: rub, click - Extremities Extremities: pulses symmetrical, No edema Peripheral Pulses: within normal limits - Abdominal General gastrointestinal: Present: soft, non-tender, non-distended, normal bowel sounds Male genitourinary: Present: normal - Integumentary Integumentary: Present: clear, warm, dry - Musculoskeletal Musculoskeletal: gait normal, strength equal bilaterally - Psychiatric Psychiatric: appropriate mood/affect, intact judgment & insight - Neurologic Neurologic: CNII-XII intact, moves all extremities Plan Activity: no restrictions Weight Bearing Status: Full Weight Bearing Diet: low cholesterol Wound: open to air Follow up with: PRIMARY CARE, [Primary Care Provider] - 7 Days Prescriptions: Aspirin 325 mg PO QDAY #30 tablet labetaloL [Labetalol 200mg TAB] 200 mg PO BID #60 tablet Insulin Glargine [Lantus VIAL] 20 units SUB-Q QHS #1 units AtorvaSTATin [Lipitor] 40 mg PO QHS #30 tablet
[2019-06-26] MEDS: INSULIN GLARGINE 100 UNITS/ML SUB-Q SCH (21:51)
--- NOTE | 2019-06-26 21:57 | Consultation ---
History of Present Illness - Reason for Consult Consult date: 06/26/19 Reason for consult: psychiatric evaluation - Chief Complaint Chief complaint: generalized weakness - History of Present Psychiatric Illness 49 yo seen for psychiatric evaluation on the tele floor. He admits to crack/cocaine use prior to arrival to the hospital. He also reports being out of medications x 2 weeks. He says he spend 10 years living in nursing homes and then went to live in a personal fpc. It went bankrupt and he was temporarily housed in a hotel. He no longer has money for the hotel and has no access to his belongings. He reports being diagnosed with schizoaffective disorder, depressive type and has a history of cocaine use. He was clean for 10 years and relapsed while at the hotel. Medications and Allergies Allergies Allergy/AdvReac Type Severity Reaction Status Date / Time BOWEN Inhibitors Allergy Unknown Verified 06/25/19 08:06 Home Medications Medication Instructions Recorded Confirmed Last Taken Type Acetaminophen [Acetaminophen TAB] 650 mg PO Q4H PRN tablet 06/26/19 Unknown Rx Aspirin 325 mg PO QDAY #30 tablet 06/26/19 Unknown Rx AtorvaSTATin [Lipitor] 40 mg PO QHS #30 tablet 06/26/19 Unknown Rx Insulin Glargine [Lantus VIAL] 20 units SUB-Q QHS #1 units 06/26/19 Unknown Rx labetaloL [Labetalol 200mg TAB] 200 mg PO BID #60 tablet 06/26/19 Unknown Rx Active Meds: Active Medications Acetaminophen (Tylenol) 650 mg PO Q4H PRN PRN Reason: Pain MILD(1-3)/Fever >100.5/KNOTT Aspirin (Aspirin) [address] [facility] Last Admin: 06/26/19 10:35 Dose: 325 mg Documented by: Atorvastatin Calcium (Lipitor) [address] [facility] Last Admin: 06/26/19 21:50 Dose: 40 mg Documented by: Dextrose (D50w (25gm) Syringe) 50 ml IV Q30MIN PRN; Protocol PRN Reason: Hypoglycemia Insulin Glargine (Lantus) 20 units SUB-Q QHS [facility] Last Admin: 06/26/19 21:51 Dose: 20 units Documented by: Insulin Human Lispro (Humalog) 0 unit SUB-Q [facility]; Protocol Last Admin: 06/26/19 21:51 Dose: 8 unit Documented by: Labetalol HCl (Labetalol) [address] [facility] Last Admin: 06/26/19 21:50 Dose: 200 mg Documented by: Morphine Sulfate (Morphine) 2 mg IV Q4H PRN PRN Reason: Pain, Moderate (4-6) Naloxone HCl (Naloxone) 0.1 mg IV Q2MIN PRN PRN Reason: Res Rate </= 8 or 02 SAT < 92% Ondansetron HCl (Zofran) 4 mg IV Q8H PRN PRN Reason: Nausea And Vomiting Sodium Chloride (Sodium Chloride Flush Syringe 10 Ml) [address] [facility] Last Admin: 06/26/19 21:52 Dose: 10 ml Documented by: Sodium Chloride (Sodium Chloride Flush Syringe 10 Ml) 10 ml IV PRN PRN PRN Reason: LINE FLUSH Past psychiatric history - Past Medical History Past Medical History: other (DM and HTN. Also BKA left. Also has hypothyroidism) - Social History Social history: other (homeless) Mental Status Exam - Vital signs Last Vital Signs Temp 97.9 F 06/26/19 19:52 Pulse 70 06/26/19 21:50 Resp 18 06/26/19 19:52 BP 154/73 06/26/19 21:50 Pulse Ox 98 06/26/19 19:52 - Exam Orientation: time, place, person Affect: depressed Mood: congruent with affect Thought content: other (denies suicidal ideation, no HI) Thought Process: Intact Perceptions: auditory (hearing voices telling him he is no good) Speech: normal rate and pattern Concentration: focused Motor activity: normal Level of consciousness: alert Memory: Intact Sleep Symptoms: Difficulty Falling Asleep Appetite: decreased Interaction: cooperative Results Result Diagrams: 06/26/19 10:40 06/26/19 10:40 Abnormal lab results 06/25/19 06/26/19 06/26/19 Range/Units 22:10 10:40 10:40 RDW 15.6 H (13.2-15.2) % Plt Count 114 L (140-440) K/mm3 Sodium 135 L (137-145) mmol/L Carbon Dioxide 19 L (22-30) mmol/L Glucose 656 H* (75-100) mg/dL POC Glucose 465 H (70-105) 06/26/19 06/26/19 06/26/19 Range/Units 11:48 16:38 21:51 RDW (13.2-15.2) % Plt Count (140-440) K/mm3 Sodium (137-145) mmol/L Carbon Dioxide (22-30) mmol/L Glucose (75-100) mg/dL POC Glucose 494 H 393 H 457 H (70-105) All other labs normal. Assessment and Plan Assessment and plan: Impression: schizoaffective disorder, depressive type cocaine use disorder relapsed after 10 years all med names and dosages unknown Recommendations: He says effexor and risperdal are familiar restart effexor xr 75mg qam for depressive symptoms and risperdal 1mg hs for SCAD. risks/benefits discussed dispo: 1013 not indicated. psych for med management. CM to address his housing needs staffed with Dr. Solomon
[2019-06-26] MEDS: risperiDONE 1 MG TAB PO SCH (22:09)
--- NOTE | 2019-06-27 09:37 | Progress Note ---
Assessment and Plan In view of no arrhythmia 48 hours PP control chest pain free negative stress test and normal LV function echocardiogram patient may be discharged from cardiovascular point of view and patient again about avoiding taking drugs cocaine - Patient Problems (1) NSTEMI (non-ST elevated myocardial infarction) Current Visit: Yes Status: Acute (2) Weakness Current Visit: Yes Status: Acute (3) Crack cocaine use Current Visit: Yes Status: Chronic (4) Diabetes Current Visit: Yes Status: Chronic (5) Hx of right BKA Current Visit: Yes Status: Chronic (6) Uncontrolled hypertension Current Visit: Yes Status: Chronic Subjective Date of service: 06/27/19 Principal diagnosis: weakness Interval history: lying in bed no sob or cp Objective Vital Signs Temp Pulse Resp BP Pulse Ox 06/27/19 08:18 97.6 F 81 18 146/71 97 06/27/19 04:37 97.9 F 74 20 155/74 98 06/27/19 03:00 76 06/26/19 23:38 98.2 F 73 20 135/67 97 06/26/19 21:50 70 154/73 06/26/19 19:52 97.9 F 75 18 154/73 98 06/26/19 16:54 80 141/64 97 06/26/19 15:21 98 06/26/19 15:00 85 06/26/19 12:28 98.1 F 85 18 147/50 95 - Physical Examination General: No Apparent Distress HEENT: Positive: PERRL, Normocephaly, Mucus Membranes Moist Neck: Positive: neck supple, trachea midline Cardiac: Positive: Reg Rate and Rhythm Lungs: Positive: clear to auscultation Neuro: Positive: Grossly Intact Abdomen: Negative: Tender Skin: Negative: Rash, Wound Musculoskeletal: No Pain, other (right BKA ) Extremities: Present: Other (right BKA) - Labs and Meds CBC 06/26/19 Range/Units 10:40 WBC 6.0 (4.5-11.0) K/mm3 RBC 4.50 (3.65-5.03) M/mm3 Hgb 12.4 (11.8-15.2) gm/dl Hct 37.6 (35.5-45.6) % Plt Count 114 L (140-440) K/mm3 Lymph # 1.3 (1.2-5.4) K/mm3 [place] # 0.3 (0.0-0.8) K/mm3 Eos # 0.2 (0.0-0.4) K/mm3 Baso # 0.1 (0.0-0.1) K/mm3 Comprehensive Metabolic Panel 06/26/19 Range/Units 10:40 Sodium 135 L (137-145) mmol/L Potassium 3.9 (3.6-5.0) mmol/L Chloride 98.9 (98-107) mmol/L Carbon Dioxide 19 L (22-30) mmol/L BUN 20 (9-20) mg/dL Creatinine 1.3 (0.8-1.5) mg/dL Glucose 656 H* (75-100) mg/dL Calcium 8.5 (8.4-10.2) mg/dL - Imaging and Cardiology EKG: report reviewed, image reviewed Echo: report reviewed (normal LV function and no significant regurgitations) - Telemetry EKG Rhythm: Sinus Rhythm (no arrhythmia for 48 hours) - EKG Sinus rhythms and dysrhythmias: sinus rhythm
[2019-06-27] MEDS: VENLAFAXINE XR 75 MG CAP PO SCH (10:01)
[2019-06-27] MEDS: ASPIRIN 325 MG TAB PO SCH (10:01)
[2019-06-27] MEDS: INSULIN LISPRO 100 UNIT/ML SUB-Q SCH ×4 (10:01→22:40)
[2019-06-27] MEDS: INSULIN GLARGINE 100 UNITS/ML SUB-Q SCH ×2 (10:10→22:40)
--- NOTE | 2019-06-27 13:45 | Progress Note ---
Assessment and Plan - Patient Problems (1) Elevated troponin Current Visit: Yes Status: Acute Plan to address problem: Patient non-STEMI secondary to crack use and dehydration. Nonspecific elevation. No chest pain or shortness of breath. (2) NSTEMI (non-ST elevated myocardial infarction) Current Visit: Yes Status: Acute Plan to address problem: We'll treat underlying blood pressure referring from crack use. Aspirin (3) Crack cocaine use Current Visit: Yes Status: Chronic Plan to address problem: Patient had become essentially homeless depressed use crack cocaine. Discussed about and heart disease and also its association with depression (4) Diabetes Current Visit: Yes Status: Chronic Plan to address problem: Patient diabetes uncontrolled. We'll increase long-acting insulin to 18 units twice a day and also control increase sliding scale insulin coverage. (5) Hx of right BKA Current Visit: Yes Status: Chronic (6) Uncontrolled hypertension Current Visit: Yes Status: Chronic Plan to address problem: Patient blood pressure failure was suboptimal. We'll add calcium channel josefina patient is allergic to yaneli inhibitors. (7) Encephalopathy Current Visit: Yes Status: Acute Plan to address problem: Crack induced psychosis. Has resolved. Patient alert and oriented 3 aware of surroundings. (8) Encephalopathy acute Current Visit: Yes Status: Acute (9) Depression Current Visit: Yes Status: Acute Plan to address problem: Patient on Risperdal for history of psychosis and also on Effexor for depression. History Interval history: Patient states he has nowhere to go. Has no cold. As mentioned previously. Patient states he is out of his medications and had no wart to be transported to. Case management involved in the case and aware. Did discuss his diabetes was uncontrolled. He is not sure what he was taking prior. Hospitalist Physical - Constitutional Vitals: Temp Pulse Resp BP Pulse Ox 97.6 F 81 18 146/71 97 06/27/19 08:18 06/27/19 08:18 06/27/19 08:18 06/27/19 08:18 06/27/19 08:18 General appearance: Present: no acute distress, well-nourished - EENT Eyes: Present: PERRL, EOM intact ENT: hearing intact, clear oral mucosa, poor dentition - Neck Neck: Present: supple, normal ROM - Respiratory Respiratory: bilateral: CTA - Cardiovascular Rhythm: regular Heart Sounds: Present: S1 & S2 - Extremities Extremities: no ischemia, pulses intact, pulses symmetrical, abnormal (right BKA) Extremity abnormal: pulses diminished, other (right BKA.) Peripheral Pulses: within normal limits - Abdominal General gastrointestinal: soft, non-tender, non-distended, normal bowel sounds - Integumentary Integumentary: Present: clear, warm, dry - Psychiatric Psychiatric: appropriate mood/affect, intact judgment & insight, memory intact - Neurologic Neurologic: CNII-XII intact, moves all extremities Results - Labs CBC & Chem 7: 06/26/19 10:40 06/26/19 10:40 Labs: Laboratory Last Values WBC 6.0 K/mm3 (4.5-11.0) 06/26/19 10:40 RBC 4.50 M/mm3 (3.65-5.03) 06/26/19 10:40 Hgb 12.4 gm/dl (11.8-15.2) 06/26/19 10:40 Hct 37.6 % (35.5-45.6) 06/26/19 10:40 MCV 84 fl (84-94) 06/26/19 10:40 MCH 28 pg (28-32) 06/26/19 10:40 MCHC 33 % (32-34) 06/26/19 10:40 RDW 15.6 % (13.2-15.2) H 06/26/19 10:40 Plt Count 114 K/mm3 (140-440) L 06/26/19 10:40 Lymph % (Auto) 21.4 % (13.4-35.0) 06/26/19 10:40 [place] % (Auto) 5.5 % (0.0-7.3) 06/26/19 10:40 Eos % (Auto) 2.6 % (0.0-4.3) 06/26/19 10:40 Baso % (Auto) 0.9 % (0.0-1.8) 06/26/19 10:40 Lymph # 1.3 K/mm3 (1.2-5.4) 06/26/19 10:40 [place] # 0.3 K/mm3 (0.0-0.8) 06/26/19 10:40 Eos # 0.2 K/mm3 (0.0-0.4) 06/26/19 10:40 Baso # 0.1 K/mm3 (0.0-0.1) 06/26/19 10:40 Seg Neutrophils % 69.6 % (40.0-70.0) 06/26/19 10:40 Seg Neutrophils # 4.2 K/mm3 (1.8-7.7) 06/26/19 10:40 PT 13.8 Sec. (12.2-14.9) 06/25/19 18:55 INR 1.07 (0.87-1.13) 06/25/19 18:55 APTT 35.3 Sec. (24.2-36.6) 06/25/19 18:55 VBG pH 7.297 (7.320-7.420) L 06/25/19 08:29 Sodium 135 mmol/L (137-145) L 06/26/19 10:40 Potassium 3.9 mmol/L (3.6-5.0) 06/26/19 10:40 Chloride 98.9 mmol/L (98-107) 06/26/19 10:40 Carbon Dioxide 19 mmol/L (22-30) L 06/26/19 10:40 Anion Gap 21 mmol/L 06/26/19 10:40 BUN 20 mg/dL (9-20) 06/26/19 10:40 Creatinine 1.3 mg/dL (0.8-1.5) 06/26/19 10:40 Estimated GFR 58 ml/min 06/26/19 10:40 BUN/Creatinine Ratio 15 % 06/26/19 10:40 Glucose 656 mg/dL (75-100) H* 06/26/19 10:40 POC Glucose 387 (70-105) H 06/27/19 08:25 Hemoglobin A1c 11.8 % (4-6) H 06/25/19 18:55 Calcium 8.5 mg/dL (8.4-10.2) 06/26/19 10:40 Total Bilirubin 0.30 mg/dL (0.1-1.2) 06/25/19 08:29 AST 16 units/L (5-40) 06/25/19 08:29 ALT 17 units/L (7-56) 06/25/19 08:29 Alkaline Phosphatase 200 units/L (35-129) H 06/25/19 08:29 Troponin T 0.047 ng/mL (0.00-0.029) H D 06/25/19 18:55 Total Protein 6.3 g/dL (6.3-8.2) 06/25/19 08:29 Albumin 2.9 g/dL (3.9-5) L 06/25/19 08:29 Albumin/Globulin Ratio 0.9 % 06/25/19 08:29 Triglycerides 392 mg/dL (2-149) H 06/25/19 08:29 Cholesterol 191 mg/dL (50-199) 06/25/19 08:29 LDL Cholesterol Direct 123 mg/dL (50-130) 06/25/19 08:29 HDL Cholesterol 29 mg/dL (40-59) L 06/25/19 08:29 Cholesterol/HDL Ratio 6.58 % 06/25/19 08:29 Urine Color Yellow (Yellow) 06/25/19 Unknown Urine Turbidity Clear (Clear) 06/25/19 Unknown Urine pH 5.0 (5.0-7.0) 06/25/19 Unknown Ur Specific [place] 1.021 (1.003-1.030) 06/25/19 Unknown Urine Protein >500 mg/dL (Negative) 06/25/19 Unknown Urine Glucose (UA) >=500 mg/dL (Negative) 06/25/19 Unknown Urine Ketones 80 mg/dL (Negative) 06/25/19 Unknown Urine Blood Mod (Negative) 06/25/19 Unknown Urine Nitrite Neg (Negative) 06/25/19 Unknown Urine Bilirubin Neg (Negative) 06/25/19 Unknown Urine Urobilinogen < 2.0 mg/dL (<2.0) 06/25/19 Unknown Ur Leukocyte Esterase Neg (Negative) 06/25/19 Unknown Urine WBC (Auto) 2.0 /HPF (0.0-6.0) 06/25/19 Unknown Urine RBC (Auto) 2.0 /HPF (0.0-6.0) 06/25/19 Unknown Urine Bacteria (Auto) 1+ /HPF (Negative) 06/25/19 Unknown Urine Mucus Few /HPF 06/25/19 Unknown Urine Opiates Screen Presumptive negative 06/25/19 Unknown Urine Methadone Screen Presumptive negative 06/25/19 Unknown Ur Barbiturates Screen Presumptive negative 06/25/19 Unknown Ur Phencyclidine Scrn Presumptive negative 06/25/19 Unknown Ur Amphetamines Screen Presumptive negative 06/25/19 Unknown U Benzodiazepines Scrn Presumptive negative 06/25/19 Unknown Urine Cocaine Screen Presumptive positive 06/25/19 Unknown U Marijuana (THC) Screen Presumptive negative 06/25/19 Unknown Drugs of Abuse Note Disclamer 06/25/19 Unknown Active Medications - Current Medications Current Medications: Generic Name Dose Route Start Last Admin Trade Name Freq PRN Reason Stop Dose Admin Acetaminophen 650 mg 06/25/19 11:02 Tylenol PO Q4H PRN Pain MILD(1-3)/Fever >100.5/KNOTT Aspirin 325 mg 06/26/19 10:00 06/27/19 10:01 Aspirin PO 325 mg QDAY ADTIHYA Administration Atorvastatin Calcium 40 mg 06/25/19 22:00 06/26/19 21:50 Lipitor PO 40 mg QHS ADITHYA Administration Dextrose 50 ml 06/25/19 11:02 D50w (25gm) Syringe IV Q30MIN PRN Hypoglycemia Protocol Insulin Glargine 18 units 06/27/19 10:00 06/27/19 10:10 Lantus SUB-Q 18 units BID ADITHYA Administration Insulin Human Lispro 0 unit 06/25/19 16:30 06/27/19 12:22 Humalog SUB-Q 8 unit ACHS ADITHYA Administration Protocol Labetalol HCl 200 mg 06/25/19 22:00 06/27/19 10:01 Labetalol PO 200 mg BID ADITHYA Administration Morphine Sulfate 2 mg 06/25/19 11:02 Morphine IV Q4H PRN Pain, Moderate (4-6) Naloxone HCl 0.1 mg 06/25/19 11:02 Naloxone IV Q2MIN PRN Res Rate </= 8 or 02 SAT < 92% Ondansetron HCl 4 mg 06/25/19 11:02 Zofran IV Q8H PRN Nausea And Vomiting Risperidone 1 mg 06/26/19 22:00 06/26/19 22:09 Risperdal PO 1 mg HS ADITHYA Administration Sodium Chloride 10 ml 06/25/19 22:00 06/27/19 10:06 Sodium Chloride Flush Syringe 10 Ml IV 10 ml BID ADITHYA Administration Sodium Chloride 10 ml 06/25/19 11:02 Sodium Chloride Flush Syringe 10 Ml IV PRN PRN LINE FLUSH Venlafaxine HCl 75 mg 06/27/19 10:00 06/27/19 10:01 Effexor Xr PO 75 mg QDAY ADITHYA Administration
[2019-06-27] MEDS ORDERED: amLODIPine 5 MG TAB PO ONE (13:47)
[2019-06-27] MEDS: risperiDONE 1 MG TAB PO SCH (22:39)
[2019-06-28] MEDS: INSULIN LISPRO 100 UNIT/ML SUB-Q SCH ×3 (07:30→16:11)
[2019-06-28] MEDS ORDERED: INSULIN GLARGINE 100 UNITS/ML SUB-Q SCH ×3 (10:00→16:30)
[2019-06-28] MEDS: VENLAFAXINE XR 75 MG CAP PO SCH (10:16)
[2019-06-28 10:17] VITALS: BP 150/75
[2019-06-28] MEDS: ASPIRIN 325 MG TAB PO SCH (10:17)
[2019-06-28] MEDS ORDERED: INSULIN LISPRO 100 UNIT/ML SUB-Q ONE (15:48)
--- NOTE | 2019-06-28 18:19 | Discharge Summary ---
Providers - Providers Date of Admission: 06/28/19 15:48 Attending physician: INO COLLINS MD 06/25/19 12:29 Consult to Mental Health [CONS] Routine Reason For Exam: medication assistance Place consult to:: mental health Notified:: Alexia KIRKLADN Phone number called:: [phone]. 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 Per patient he was a resident of a personal halfway that subsequently shut down and he was placed in a hotel room. The patient reports that unfortunately due to the pervasiveness of cocain in the area and his feeling of depression although not suicidal, he started to use Cocain. The chest pain is central according to the patient with no radiation. He rates it a 5/10 in intensity with generalized weakness. He also denies any shortness of breath, palpitation, nausea or vomiting. He reports some redness and warmth of the left lower leg but no fever. At the time of my exam, patients chest pain was resolved. Patient had negative stress tests negative echo. Cardiac isoenzymes are elevated secondary to crack cocaine abuse. Hypertension fairly well control was optimized. Patient stabilized for discharge. Also had evidence of hyponatremia diabetes are stable and hypertension. Patient apparently since being out of his Personal halfway has been non complaint with his meds and has not had them refilled, His PCP office was contacted and we refilled these. He will need close monitoring of his Blood glcose. we chose lantus due to his statement that he did not use the regular insulin but lantus He will follow at the [facility] program and I was assured that he will be taken tonight - Patient Problems (1) Elevated troponin Current Visit: Yes Status: Acute Plan to address problem: Patient non-STEMI secondary to crack use and dehydration. Nonspecific elevation. No chest pain or shortness of breath. (2) NSTEMI (non-ST elevated myocardial infarction) Current Visit: Yes Status: Acute Plan to address problem: We'll treat underlying blood pressure referring from crack use. Aspirin (3) Crack cocaine use Current Visit: Yes Status: Chronic Plan to address problem: Patient had become essentially homeless depressed use crack cocaine. Discussed about and heart disease and also its association with depression (4) Diabetes Current Visit: Yes Status: Chronic Plan to address problem: Patient diabetes uncontrolled. We'll increase long-acting insulin to 18 units twice a day and also control increase sliding scale insulin coverage. (5) Hx of right BKA Current Visit: Yes Status: Chronic (6) Uncontrolled hypertension Current Visit: Yes Status: Chronic Plan to address problem: Patient blood pressure failure was suboptimal. We'll add calcium channel josefina patient is allergic to yaneli inhibitors. (7) Encephalopathy Current Visit: Yes Status: Acute Plan to address problem: Crack induced psychosis. Has resolved. Patient alert and oriented 3 aware of surroundings. (8) Encephalopathy acute Current Visit: Yes Status: Acute (9) Depression Current Visit: Yes Status: Acute Plan to address problem: Patient on Risperdal for history of psychosis and also on Effexor for depression. Disposition: DC-01 TO HOME OR SELFCARE Time spent for discharge: 35 mins Core Measure Documentation - Palliative Care Palliative Care/ Comfort Measures: Not Applicable - Core Measures Any of the following diagnoses?: none Exam - Physical Exam Narrative exam: General appearance: Present: NO distress, well-nourished, MUCH REFRESED APPEARING - EENT Eyes: Present: PERRL, EOM intact ENT: clear oral mucosa - Neck Neck: Present: supple, normal ROM - Respiratory Respiratory effort: normal Respiratory: bilateral: diminished - Cardiovascular Rhythm: regular Heart Sounds: Present: S1 & S2. Absent: systolic murmur, diastolic murmur - Extremities Extremities: no ischemia, pulses intact, pulses symmetrical, normal temperature Extremity abnormal: edema Peripheral Pulses: within normal limits - Abdominal General gastrointestinal: Present: soft, non-tender, non-distended, normal bowel sounds - Integumentary Integumentary: Present: No warm, erythema (left lower ext) - Musculoskeletal Musculoskeletal: generalized weakness - Psychiatric Psychiatric: appropriate mood/affect, intact judgment & insight - Neurologic Neurologic: CNII-XII intact, moves all extremities - Allied Health Allied health notes reviewed: nursing - Constitutional Vitals: Temp Pulse Resp BP Pulse Ox 97.5 F L 78 19 150/75 99 06/28/19 08:39 06/28/19 10:16 06/28/19 10:00 06/28/19 10:16 06/28/19 10:00 Plan Activity: advance as tolerated, up only with assistance Diet: low fat, diabetic Special Instructions: record daily weights, record daily BP diary, record blood sugar diary Follow up with: CHUY FERNANDO MD [Primary Care Provider] - 7 Days BRANDI FRANKLIN MD [Staff Physician] - 7 Days Prescriptions: AtorvaSTATin [Lipitor] 40 mg PO QHS #30 tablet Ropinirole HCl [Requip] 0.5 mg PO QHS #30 tablet ARIPiprazole [Abilify] 20 mg PO QDAY #30 tab Aspirin 325 mg PO QDAY #30 tablet Bumetanide (Nf) [Bumex 0.5mg tab] 0.5 mg PO DAILY #30 tab Venlafaxine Xr [Effexor XR] 75 mg PO QDAY #30 cap Ferrous Sulfate [Ferrous Sulfate 324 MG] 324 mg PO BID #60 tablet. Tamsulosin [Flomax] 0.4 mg PO QDAY #60 cap Gabapentin 100 mg PO QDAY #60 cap Insulin Regular, Human [HumuLIN R] 0 unit SQ AC #1 vial labetaloL [Labetalol 200mg TAB] 200 mg PO BID #60 tablet Insulin Glargine [Lantus VIAL] 40 unit SUB-Q BID #100 ml Bimatoprost [Lumigan 0.01%] 1 drop OP QPM #30 drops Amlodipine Besylate [Norvasc] 5 mg PO QDAY #30 tab Calcium Carbonate [Oscal 1250MG TAB] 1,250 mg PO QDAY #30 tab Clopidogrel [Plavix] 75 mg PO QDAY #30 tablet Pantoprazole [Protonix TAB] 40 mg PO QDAY #30 tablet risperiDONE [RisperDAL] 1 mg PO HS #30 tablet Budesonide/Formoterol Fumarate [Symbicort 160-4.5 Mcg Inhaler] 10.2 gm IH BID #1 container Levothyroxine [Synthroid] 75 mcg PO QAM #30 tablet OXcarbazepine [Trileptal] 300 mg PO BID #60 tablet Dulaglutide [Trulicity] 1.5 mg SQ QWEEK #1 pen.[email or web address]
[2019-06-29] MEDS ORDERED: LEVOTHYROXINE 75 MCG TAB PO SCH (06:00)
== END 2019-06-28 19:08 | disposition home or self-care (01) | DRG 281 ==
LOC: ED 07:47 → 4A 10:31 → OBSVTOIN 06-28 15:48
PROVIDERS: ADMIT Internal Medicine; ATTEND Internal Medicine
DX: I21.4 Non-ST elevation (NSTEMI) myocardial infarction (principal); G93.40 Encephalopathy, unspecified; E87.1 Hypo-osmolality and hyponatremia; E87.2 Acidosis; L03.116 Cellulitis of left lower limb; R65.10 Systemic inflammatory response syndrome (SIRS) of non-infectious origin without acute organ dysfunction; I10 Essential (primary) hypertension; E11.9 Type 2 diabetes mellitus without complications; I95.9 Hypotension, unspecified; E86.0 Dehydration; F32.9 Major depressive disorder, single episode, unspecified; F25.1 Schizoaffective disorder, depressive type; F14.10 Cocaine abuse, uncomplicated; D69.6 Thrombocytopenia, unspecified; F17.200 Nicotine dependence, unspecified, uncomplicated; Z89.511 Acquired absence of right leg below knee; Z79.82 Long term (current) use of aspirin; Z79.899 Other long term (current) drug therapy; Z72.89 Other problems related to lifestyle
CPT/HCPCS: 36415; 71045; 78452; 80048; 80053; 80061; 80307; 81001; 82805; 82962; 83036; 84484; 85014; 85018; 85025; 85049; 85610; 85730; 93005; 93010; 93017; 93306; 96374; 99406; G0378; A9270-GY; A9502; J0692; J1815; J2785; J7030